=== PATIENT | female | born 2005 | race Caucasian/White ===

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

== ENCOUNTER 2023-01-19 15:42 | Emergency (ER) | payer OTHER ==
[2023-01-19 15:59] VITALS: TEMP 98.1; O2SAT 100
[2023-01-19] MEDS ORDERED: Sodium Chloride 0.9% 1000 ML 1,000 ML IV STA (16:17)
[2023-01-19] MEDS ORDERED: Sodium Chloride 0.9% 1000 ML 1,000 ML ONE (16:33)
[2023-01-19 16:41] LABS: HCG URINE TEST NEGATIVE (NEGATIVE)
[2023-01-19 16:45] LABS: Appearance Clear (Clear); Bacteria None Seen /HPF (None Seen); Bilirubin Negative (Negative); Blood Negative (Negative); Epithelial Cells Rare /HPF (None Seen); Glucose, Urine Negative (Negative); Hyaline Casts NONE SEEN /LPF (0-2); Ketones Negative (Negative); Leukocyte Esterase Trace (Negative); Nitrite Negative (Negative); Ph 5.5 (4.6-8.0); Protein,Urine Dip Negative (Negative); RBC 0-2 /HPF (0-5); Specific Gravity <=1.005 (1.005-1.030); Urobilinogen 0.2 mg/dL (0.2); WBC 0-2 /HPF (0-5)
[2023-01-19 16:53] LABS: ADD URINE CULTURE? NO (NO)
[2023-01-19 16:54] LABS: Absolute Neutrophil Ct (ANC) 9.14 x10^3/uL (1.4-6.9); BASOPHIL % 0.3 % (0.0-0.4); Basophil (Absolute #) 0.04 x10^3/uL (0-0.4); Eosinophil % 0.4 % (0.00-5.0); Eosinophil (Absolute #) 0.05 x10^3/uL (0-0.5); Hematocrit 42.2 % (35-47); Hemoglobin 14.2 g/dL (12.0-16.0); IMMATURE GRAN # 0.04 x10^3u/L (0.00-0.03); IMMATURE GRAN % 0.3 % (0.00-0.4); Lymphocyte (Absolute #) 2.01 x10^3/uL (1.0-4.6); Lymphocytes % 16.9 % (24.0-44.0); Mean Cell Volume 89.8 fL (78-100); Mean Corpuscular Hemoglobin 30.2 pg (26-32); Mean Corpuscular Hgb Concent. 33.6 g/dL (32-36); Mean Platelet Volume 9.6 fL (7.5-11.0); Monocyte (Absolute #) 0.63 x10^3/uL (0.0-1.3); Monocytes % 5.3 % (0.0-12.0); Neutrophil % 76.8 % (36.0-66.0); Platelet Count 267 x10^3/uL (150-450); Red Cell Distribution Width 11.4 % (11.5-14.0); White Blood Count 11.9 x10^3/uL (4.0-10.5)
[2023-01-19 17:07] LABS: ALBUMIN 4.7 g/dL (3.5-5.0); ALKALINE PHOSPHATASE 87 U/L (38-126); AMYLASE 86 U/L (30-110); ANION GAP 13.1 MEQ/L (5-15); BLOOD UREA NITROGEN 6 mg/dL (7-17); CHLORIDE 109 mmol/L (98-107); Calcium 9.6 mg/dL (8.4-10.2); Carbon Dioxide 21 mmol/L (22-30); Creatinine 1 0.57 mg/dL (0.52-1.04); EST GLOMERULAR FILTRATION RATE > 60.0 ML/MIN; Glucose 96 mg/dL (74-106); LIPASE 97 U/L (23-300); Potassium 3.9 mmol/L (3.5-5.1); SGOT/AST 33 U/L (14-36); SGPT/ALT 16 U/L (0-35); SODIUM 139 mmol/L (137-145); Total Protein 7.7 g/dL (6.3-8.2)
[2023-01-19 17:09] LABS: Amphetamine,Urine NEGATIVE (NEGATIVE); Barbiturate,Urine NEGATIVE (NEGATIVE); Benzodiazepine,Urine NEGATIVE (NEGATIVE); Cocaine,Urine NEGATIVE (NEGATIVE); Methadone,Urine NEGATIVE (NEGATIVE); Opiate,Urine NEGATIVE (NEGATIVE); PCP,Urine NEGATIVE (NEGATIVE); THC,Urine NEGATIVE (NEGATIVE)
--- NOTE | 2023-01-19 17:36 | ERPHSYRPT ---
- History of Present Illness Time Seen by Provider: 01/19/23 16:05 Historian: patient Exam Limitations: no limitations Patient Subjective Stated Complaint: PT HERE FOR SUDDEN ONSET OF EPIGASTRIC PAIN THAT RADIATES DOWN ABD 45 MINS AGO, NO FEVER, PT HAS HX OF ABD PAIN AND C ONSTIPATION. SHE STATES SHE HAS NOT HAD A BM FOR OVER A WEEK NOW Triage Nursing Assessment: PT ALERT, WALKED IN. RESP EASY, SKIN W/D/P. ABD SOFT, TENDER TO EPIGATRIC AREA. MOVES ALL EXT WELL, NO EDEMA NOTED Physician History: Patient is a 17-year-old white female who presents with abdominal pain which started approximately an hour prior to arrival. The pain seems to start in the epigastric area and radiates down into the suprapubic area. This patient suffers from chronic constipation and says she has not had a bowel movement in a week. She has no fever chills or sweats she rates the taint pain 10 of 10 but is certainly not displaying any sign of distress. She was seen by gastrology in May of this year and had a pelvic ultrasound which did show some ovarian cysts. Timing/Duration: today Activities at Onset: none Quality: cramping Abdominal Pain Onset Location: epigastric Pain Radiation: periumbilical Severity of Pain-Max: severe Severity of Pain-Current: severe Previous symptoms: same symptoms as today Allergies/Adverse Reactions: No Known Drug Allergies Allergy (Verified 01/19/23 16:01) Home Medications: Escitalopram Oxalate [Lexapro] 10 mg PO DAILY 01/19/23 [History] Hx Tetanus, Diphtheria Vaccination/Date Given: Yes Hx Influenza Vaccination/Date Given: No Hx Pneumococcal Vaccination/Date Given: No Immunizations Up to Date: Yes Travel Risk - International Travel Have you traveled outside of the country in past 3 weeks: No - Coronavirus Screening Are you exhibiting any of the following symptoms?: No Close contact with a COVID-19 positive Pt in past 14-21 Days: No - Vaccine Status Have you recieved a Covid-19 vaccination: Yes 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[employer] - Vaccination Dates Date of 2cond Vaccination (if applicable): 2020 - Review of Systems Constitutional: No Fever, No Chills Eyes: No Symptoms Ears, Nose, & Throat: No Symptoms Respiratory: No Cough, No Dyspnea Cardiac: No Chest Pain, No Edema, No Syncope Abdominal/Gastrointestinal: Abdominal Pain, No Nausea, No Vomiting, No Diarrhea Genitourinary Symptoms: No Dysuria Musculoskeletal: No Back Pain, No Neck Pain Skin: No Rash Neurological: No Dizziness, No Focal Weakness, No Sensory Changes Psychological: No Symptoms Endocrine: No Symptoms All Other Systems: Reviewed and Negative - Past Medical History Pertinent Past Medical History: No - Past Surgical History Past Surgical History: No Neuro Surgical History: Other Other Surgical History: TUBES IN EARS - Social History Smoking Status: Never smoker Exposure to second hand smoke: No Drug Use: none Patient Lives Alone: No - Female History Hx Last Menstrual Period: WEEK AGO Hx Now: No - Nursing Vital Signs Nursing Vital Signs: Initial Vital Signs Temperature 98.1 F 01/19/23 15:58 Pulse Rate 77 01/19/23 15:58 Respiratory Rate 18 01/19/23 15:58 Blood Pressure 139/90 01/19/23 15:58 O2 Sat by Pulse Oximetry 100 01/19/23 15:58 Pain Scale Pain Intensity 10 - Physical Exam General Appearance: no apparent distress, alert Eye Exam: PERRL/EOMI, eyes nml inspection Ears, Nose, Throat Exam: normal ENT inspection, pharynx normal, moist mucous membranes Neck Exam: normal inspection, non-tender, supple, full range of motion Respiratory Exam: normal breath sounds, lungs clear, No respiratory distress Cardiovascular Exam: regular rate/rhythm, normal heart sounds Gastrointestinal/Abdomen Exam: tenderness, No distention, No mass, No guarding, No rebound Back Exam: normal inspection, normal range of motion, No CVA tenderness, No vertebral tenderness Extremity Exam: normal inspection, normal range of motion, pelvis stable Neurologic Exam: alert, oriented x 3, cooperative, normal mood/affect, nml cerebellar function, sensation nml, No motor deficits Skin Exam: normal color, warm, dry SpO2 Interpretation: normal SpO2: 100 O2 Delivery: Room Air - Course Nursing assessment & vital signs reviewed: Yes - CT Exams Abdomen/Pelvis CT Interpretation: Tele-radiologist Report Ordered Tests: Active Orders 24 hr Category Date Time Status IV Insertion STAT Care 01/19/23 16:17 Active ABDOMEN AND PELVIS W CONTRAST [CT] Stat Exams 01/19/23 16:17 Completed AMYLASE Stat Lab 01/19/23 16:40 Completed CBC W DIFF Stat Lab 01/19/23 16:40 Completed CMP Stat Lab 01/19/23 16:40 Completed HCG QUALITATIVE, URINE Stat Lab 01/19/23 16:21 Completed LIPASE Stat Lab 01/19/23 16:40 Completed Lactic Acid Stat Lab 01/19/23 16:55 Completed UA W/RFX UR CULTURE Stat Lab 01/19/23 16:21 Completed Urine Triage Profile Stat Lab 01/19/23 16:21 Completed Medication Summary Discontinued Medications Generic Name Dose Route Start Last Admin Trade Name Linus PRN Reason Stop Dose Admin Sodium Chloride 1,000 mls @ 999 mls/hr 01/19/23 16:17 01/19/23 16:35 Sodium Chloride 0.9% 1000 Ml IV 01/19/23 17:17 999 mls/hr .Q1H1M STA Administration Sodium Chloride Confirm 01/19/23 16:33 Sodium Chloride 0.9% 1000 Ml Administered 01/19/23 16:34 Dose 1,000 mls @ ud .ROUTE .STK-MED ONE Lab/Rad Data: Laboratory Result Diagrams 01/19/23 16:40 01/19/23 16:40 Laboratory Results 01/19/23 01/19/23 01/19/23 Range/Units 16:55 16:40 16:40 WBC 11.9 H (4.0-10.5) x10^3/uL RBC 4.70 (4.1-5.4) x10^6/uL Hgb 14.2 (12.0-16.0) g/dL Hct 42.2 (35-47) % MCV 89.8 (78-100) fL MCH 30.2 (26-32) pg MCHC 33.6 (32-36) g/dL RDW 11.4 L (11.5-14.0) % Plt Count 267 (150-450) x10^3/uL MPV 9.6 (7.5-11.0) fL Gran % 76.8 H (36.0-66.0) % Immature Gran % (Auto) 0.3 (0.00-0.4) % Nucleat RBC Rel Count 0.0 (0.00-0.1) % Eos # (Auto) 0.05 (0-0.5) x10^3/uL Immature Gran # (Auto) 0.04 H (0.00-0.03) x10^3u/L Absolute Lymphs (auto) 2.01 (1.0-4.6) x10^3/uL Absolute Monos (auto) 0.63 (0.0-1.3) x10^3/uL Absolute Nucleated RBC 0.00 (0.00-0.01) x10^3u/L Lymphocytes % 16.9 L (24.0-44.0) % Monocytes % 5.3 (0.0-12.0) % Eosinophils % 0.4 (0.00-5.0) % Basophils % 0.3 (0.0-0.4) % Absolute Granulocytes 9.14 H (1.4-6.9) x10^3/uL Basophils # 0.04 (0-0.4) x10^3/uL Sodium 139 (137-145) mmol/L Potassium 3.9 (3.5-5.1) mmol/L Chloride 109 H (98-107) mmol/L Carbon Dioxide 21 L (22-30) mmol/L Anion Gap 13.1 (5-15) MEQ/L BUN 6 L (7-17) mg/dL Creatinine 0.57 (0.52-1.04) mg/dL Estimated GFR > 60.0 ML/MIN Glucose 96 (74-106) mg/dL Lactic Acid 1.1 (0.4-2.0) Calcium 9.6 (8.4-10.2) mg/dL Total Bilirubin 0.50 (0.2-1.3) mg/dL AST 33 (14-36) U/L ALT 16 (0-35) U/L Alkaline Phosphatase 87 (38-126) U/L Serum Total Protein 7.7 (6.3-8.2) g/dL Albumin 4.7 (3.5-5.0) g/dL Amylase 86 (30-110) U/L Lipase 97 (23-300) U/L Urine Color (Yellow) Urine Appearance (Clear) Urine pH (4.6-8.0) Ur Specific [place] (1.005-1.030) Urine Protein (Negative) Urine Glucose (UA) (Negative) mg/dL Urine Ketones (Negative) Urine Blood (Negative) Urine Nitrite (Negative) Urine Bilirubin (Negative) Urine Urobilinogen (0.2) mg/dL Ur Leukocyte Esterase (Negative) U Hyaline Cast (Auto) (0-2) /LPF Urine Microscopic RBC (0-5) /HPF Urine Microscopic WBC (0-5) /HPF Ur Epithelial Cells (None Seen) /HPF Urine Bacteria (None Seen) /HPF Urine Culture Reflexed (NO) Urine HCG, Qual (NEGATIVE) Urine Opiates Level (NEGATIVE) Ur Methadone (NEGATIVE) Urine Barbiturates (NEGATIVE) Ur Phencyclidine (PCP) (NEGATIVE) Urine Amphetamine (NEGATIVE) U Benzodiazepine Level (NEGATIVE) Urine Cocaine (NEGATIVE) Urine Marijuana (THC) (NEGATIVE) 01/19/23 01/19/23 01/19/23 Range/Units 16:21 16:21 16:21 WBC (4.0-10.5) x10^3/uL RBC (4.1-5.4) x10^6/uL Hgb (12.0-16.0) g/dL Hct (35-47) % MCV (78-100) fL MCH (26-32) pg MCHC (32-36) g/dL RDW (11.5-14.0) % Plt Count (150-450) x10^3/uL MPV (7.5-11.0) fL Gran % (36.0-66.0) % Immature Gran % (Auto) (0.00-0.4) % Nucleat RBC Rel Count (0.00-0.1) % Eos # (Auto) (0-0.5) x10^3/uL Immature Gran # (Auto) (0.00-0.03) x10^3u/L Absolute Lymphs (auto) (1.0-4.6) x10^3/uL Absolute Monos (auto) (0.0-1.3) x10^3/uL Absolute Nucleated RBC (0.00-0.01) x10^3u/L Lymphocytes % (24.0-44.0) % Monocytes % (0.0-12.0) % Eosinophils % (0.00-5.0) % Basophils % (0.0-0.4) % Absolute Granulocytes (1.4-6.9) x10^3/uL Basophils # (0-0.4) x10^3/uL Sodium (137-145) mmol/L Potassium (3.5-5.1) mmol/L Chloride (98-107) mmol/L Carbon Dioxide (22-30) mmol/L Anion Gap (5-15) MEQ/L BUN (7-17) mg/dL Creatinine (0.52-1.04) mg/dL Estimated GFR ML/MIN Glucose (74-106) mg/dL Lactic Acid (0.4-2.0) Calcium (8.4-10.2) mg/dL Total Bilirubin (0.2-1.3) mg/dL AST (14-36) U/L ALT (0-35) U/L Alkaline Phosphatase (38-126) U/L Serum Total Protein (6.3-8.2) g/dL Albumin (3.5-5.0) g/dL Amylase (30-110) U/L Lipase (23-300) U/L Urine Color Yellow (Yellow) Urine Appearance Clear (Clear) Urine pH 5.5 (4.6-8.0) Ur Specific [place] <=1.005 (1.005-1.030) Urine Protein Negative (Negative) Urine Glucose (UA) Negative (Negative) mg/dL Urine Ketones Negative (Negative) Urine Blood Negative (Negative) Urine Nitrite Negative (Negative) Urine Bilirubin Negative (Negative) Urine Urobilinogen 0.2 (0.2) mg/dL Ur Leukocyte Esterase Trace A (Negative) U Hyaline Cast (Auto) NONE SEEN (0-2) /LPF Urine Microscopic RBC 0-2 (0-5) /HPF Urine Microscopic WBC 0-2 (0-5) /HPF Ur Epithelial Cells Rare (None Seen) /HPF Urine Bacteria None Seen (None Seen) /HPF Urine Culture Reflexed NO (NO) Urine HCG, Qual NEGATIVE (NEGATIVE) Urine Opiates Level NEGATIVE (NEGATIVE) Ur Methadone NEGATIVE (NEGATIVE) Urine Barbiturates NEGATIVE (NEGATIVE) Ur Phencyclidine (PCP) NEGATIVE (NEGATIVE) Urine Amphetamine NEGATIVE (NEGATIVE) U Benzodiazepine Level NEGATIVE (NEGATIVE) Urine Cocaine NEGATIVE (NEGATIVE) Urine Marijuana (THC) NEGATIVE (NEGATIVE) - Progress Progress: unchanged Medical Desision Making - Independent Historian Additional History obtained from: Mother - Diagnostic Testing Diagnostic test were ordered, analyzed, and reviewed by me: Yes Radiological Interpretation: Reviewed by me - Risk of complications Low Risk: Low risk of morbidity from additional dx testing or treatment - Departure Departure Disposition: Home Clinical Impression: Abdominal pain Condition: Stable Critical Care Time: No Referrals: SOLIS ROD, AB [Primary Care Provider] - Follow up/PCP as directed Instructions: Severe Abdominal Pain, Adult (DC) Prescriptions: Dicyclomine HCl 20 mg [Bentyl 20 mg] 20 mg PO Q6H 10 Days #40 tablet
[2023-01-19 18:14] VITALS: BP 114/64; PULSE 71; RESP 21
--- NOTE | 2023-01-19 18:31 | XRAY ---
CLINICAL HISTORY:pain COMPARISON:None. TECHNIQUE:A CT scan of the abdomen and pelvis was performed with IV contrast. Coronal and sagittal reconstructive images were also obtained. FINDINGS: There is no evidence of hyperdense calculus in the region of kidneys, ureters, or bladder. The liver is of average size. The parenchyma is homogenous. No focal lesions. The intrahepatic biliary radicals and the bile ducts are normal. The kidneys are unremarkable showing normal site, size, and smooth outline with preserved parenchymal thickness. The spleen, pancreas, and adrenal glands are unremarkable. The caecum is relatively low in position and seen attaining rather midline location. The appendix is distinct and shows no inflammatory changes. The gallbladder is distended and shows no definite dense stones. There is no evidence of wall thickening/ pericholecystic collection. The ascending colon, the transverse colon, the descending colon, visualized small bowel loops are unremarkable. There is no evidence of significant enlargement of the mesenteric or retroperitoneal lymph nodes. The rectosigmoid colon is unremarkable. The uterus is anteverted showing mild distension of its cavity by homogenous hypo density. The endometrium measures about 1.7 cm. The left ovarian hypodense physiological cyst measures 1.6cm. No sizable adnexal masses. No evidence of pelvic lymphadenopathy. A scan through the lower chest reveals an unremarkable lung basis and heart. IMPRESSION: No urinary tract or gall bladder stones. No appendicular inflammatory changes. No sizable adnexal lesions. Apart from relative low position of the caecum. Mild distension of the uterine cavity by hypodense content. Ultrasound correlation is suggested if clinically warranted. Electronically Signed by: Jamee Da Silva MD. (01/19/2023 17:31:00 MIXER CRANE OPERATOR)
== END 2023-01-19 18:53 | disposition home or self-care (01) ==
LOC: ED 15:42
DX: R10.13 Epigastric pain (principal); R10.33 Periumbilical pain; Z79.899 Other long term (current) drug therapy
CPT/HCPCS: 36000; 36415; 74177; 80053; 80307; 81001; 81025; 82150; 83605; 83690; 85025; 96360; 99284

== ENCOUNTER 2023-08-09 15:06 | Emergency (ER) | payer OTHER ==
--- NOTE | 2023-08-09 15:16 | ERPHSYRPT ---
- History of Present Illness Time Seen by Provider: 08/09/23 15:16 Historian: patient Exam Limitations: no limitations Physician History: This is a 17-year-old white female patient of nurse practitioner Carin who presents with suprapubic abdominal pain that she describes as achiness the level of 6 out of 10 and associated nausea vomiting intermittently for 3 days. She has urinary hesitancy and urgency. She denies shortness of breath. She denies chest pain. Patient has a history of depression. Timing/Duration: day(s) Quality: aching Abdominal Pain Onset Location: suprapubic Pain Radiation: no radiation Severity of Pain-Max: moderate Severity of Pain-Current: moderate Modifying Factors: Improves With: nothing Associated Symptoms: nausea, vomiting Previous symptoms: same symptoms as today, no recent treatment Allergies/Adverse Reactions: No Known Drug Allergies Allergy (Verified 08/09/23 15:26) Home Medications: Escitalopram Oxalate [Lexapro] 10 mg PO DAILY 01/19/23 [History] Hx Tetanus, Diphtheria Vaccination/Date Given: Yes Hx Influenza Vaccination/Date Given: No Hx Pneumococcal Vaccination/Date Given: No Travel Risk - International Travel Have you traveled outside of the country in past 3 weeks: No - Emerging Infectious Disease Are you exhibiting symptoms associated with any current EIDs: No - Review of Systems Constitutional: No Symptoms Eyes: No Symptoms Ears, Nose, & Throat: No Symptoms, Throat Swelling Respiratory: No Symptoms Cardiac: No Symptoms Abdominal/Gastrointestinal: Abdominal Pain Genitourinary Symptoms: Hesitancy, Urgency (Suprapubic), No Vaginal Bleeding, No Vaginal Discharge Musculoskeletal: No Symptoms Skin: No Symptoms Neurological: No Symptoms Psychological: No Symptoms Endocrine: No Symptoms Hematologic/Lymphatic: No Symptoms Immunological/Allergic: No Symptoms All Other Systems: Reviewed and Negative - Past Medical History Pertinent Past Medical History: No - Past Surgical History Past Surgical History: No Neuro Surgical History: Other Other Surgical History: TUBES IN EARS - Social History Smoking Status: Never smoker Exposure to second hand smoke: No Drug Use: none Patient Lives Alone: No - Nursing Vital Signs Nursing Vital Signs: Initial Vital Signs Temperature 97.5 F 08/09/23 15:28 Pulse Rate 70 08/09/23 15:28 Respiratory Rate 18 08/09/23 15:28 Blood Pressure 134/77 08/09/23 15:28 O2 Sat by Pulse Oximetry 100 08/09/23 15:28 Pain Scale Pain Intensity 6 - Physical Exam General Appearance: no apparent distress, alert, anxiety Eye Exam: PERRL/EOMI, eyes nml inspection Ears, Nose, Throat Exam: normal ENT inspection, moist mucous membranes Neck Exam: normal inspection, non-tender, supple, full range of motion Respiratory Exam: normal breath sounds, lungs clear, airway intact, No chest tenderness, No respiratory distress Cardiovascular Exam: regular rate/rhythm, normal heart sounds, normal peripheral pulses Gastrointestinal/Abdomen Exam: soft, normal bowel sounds, tenderness, No guarding, No rebound Pelvic Exam: not done Rectal Exam: not done Back Exam: normal inspection, normal range of motion, No CVA tenderness, No vertebral tenderness Extremity Exam: normal inspection, normal range of motion, pelvis stable Neurologic Exam: alert, oriented x 3, cooperative, 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 nml as tested, normal mood/affect, nml cerebellar function, nml station & gait, sensation nml Skin Exam: normal color, warm, dry Lymphatic Exam: No adenopathy SpO2 Interpretation: normal O2 Delivery: Room Air - Course Nursing assessment & vital signs reviewed: Yes Ordered Tests: Active Orders 24 hr Category Date Time Status IV Insertion STAT Care 08/09/23 17:24 Active ABDOMEN AND PELVIS W/0 CONTRAS [CT] Stat Exams 08/09/23 17:24 Taken AMYLASE Stat Lab 08/09/23 17:50 Completed CBC W DIFF Stat Lab 08/09/23 17:50 Completed CMP Stat Lab 08/09/23 17:50 Completed HCG QUALITATIVE, URINE Stat Lab 08/09/23 16:04 Completed LIPASE Stat Lab 08/09/23 17:50 Completed Lactic Acid Stat Lab 08/09/23 17:45 Completed UA W/RFX UR CULTURE Stat Lab 08/09/23 16:04 Completed Medication Summary Discontinued Medications Generic Name Dose Route Start Last Admin Trade Name Freq PRN Reason Stop Dose Admin Ceftriaxone Sodium 1 gm in 100 mls @ 200 mls/hr 08/09/23 17:25 08/09/23 17:42 Rocephin 1 Gm / 100 Ml Nacl IV 08/09/23 17:54 200 mls/hr STAT ONE 200 mls/hr Administration Sodium Chloride 1,000 mls @ 999 mls/hr 08/09/23 17:24 08/09/23 17:41 Sodium Chloride 0.9% 1000 Ml IV 08/09/23 18:24 999 mls/hr .Q1H1M STA Administration Sodium Chloride Confirm 08/09/23 17:29 Sodium Chloride 0.9% 1000 Ml Administered 08/09/23 17:30 Dose 1,000 mls @ ud .ROUTE .STK-MED ONE Ceftriaxone Sodium Confirm 08/09/23 17:29 Rocephin 1 Gm / 100 Ml Nacl Administered 08/09/23 17:30 Dose 1 gm in 100 mls @ ud IV .STK-MED ONE Ondansetron HCl 4 mg 08/09/23 17:24 08/09/23 17:41 Ondansetron Hcl 4 Mg/2 Ml Vial IV 08/09/23 17:25 4 mg STAT ONE Administration Ondansetron HCl Confirm 08/09/23 17:29 Ondansetron Hcl 4 Mg/2 Ml Vial Administered 08/09/23 17:30 Dose 4 mg .ROUTE .STK-MED ONE Pantoprazole Sodium 40 mg 08/09/23 17:24 08/09/23 17:41 Pantoprazole 40 Mg Vial IV 08/09/23 17:25 40 mg STAT ONE Administration Pantoprazole Sodium Confirm 08/09/23 17:29 Pantoprazole 40 Mg Vial Administered 08/09/23 17:30 Dose 40 mg IV .STK-MED ONE Lab/Rad Data: Laboratory Result Diagrams 08/09/23 17:50 08/09/23 17:50 Laboratory Results 08/09/23 08/09/23 08/09/23 Range/Units 17:50 17:50 17:45 WBC 7.6 (4.0-10.5) x10^3/uL RBC 4.77 (4.1-5.4) x10^6/uL Hgb 14.1 (12.0-16.0) g/dL Hct 42.4 (35-47) % MCV 88.9 (78-100) fL MCH 29.6 (26-32) pg MCHC 33.3 (32-36) g/dL RDW 11.3 L (11.5-14.0) % Plt Count 246 (150-450) x10^3/uL MPV 9.7 (7.5-11.0) fL Gran % 54.3 (36.0-66.0) % Immature Gran % (Auto) 0.3 (0.00-0.4) % Nucleat RBC Rel Count 0.0 (0.00-0.1) % Eos # (Auto) 0.15 (0-0.5) x10^3/uL Immature Gran # (Auto) 0.02 (0.00-0.03) x10^3u/L Absolute Lymphs (auto) 2.31 (1.0-4.6) x10^3/uL Absolute Monos (auto) 0.96 (0.0-1.3) x10^3/uL Absolute Nucleated RBC 0.00 (0.00-0.01) x10^3u/L Lymphocytes % 30.6 (24.0-44.0) % Monocytes % 12.7 H (0.0-12.0) % Eosinophils % 2.0 (0.00-5.0) % Basophils % 0.1 (0.0-0.4) % Absolute Granulocytes 4.10 (1.4-6.9) x10^3/uL Basophils # 0.01 (0-0.4) x10^3/uL Sodium 140 (135-145) mmol/L Potassium 4.1 (3.5-5.1) mmol/L Chloride 108 H (98-107) mmol/L Carbon Dioxide 23 (22-30) mmol/L Anion Gap 12.4 (5-15) MEQ/L BUN 8 (7-17) mg/dL Creatinine 0.73 (0.52-1.04) mg/dL Estimated GFR 121.4 ML/MIN Glucose 86 (74-106) mg/dL Lactic Acid 0.6 (0.4-2.0) Calcium 9.3 (8.4-10.2) mg/dL Total Bilirubin 0.50 (0.2-1.3) mg/dL AST 21 (14-36) U/L ALT 12 (0-35) U/L Alkaline Phosphatase 49 (38-126) U/L Serum Total Protein 7.0 (6.3-8.2) g/dL Albumin 4.3 (3.5-5.0) g/dL Amylase 61 (30-110) U/L Lipase 67 (23-300) U/L Urine Color (Yellow) Urine Appearance (Clear) Urine pH (4.6-8.0) Ur Specific [place] (1.005-1.030) Urine Protein (Negative) Urine Glucose (UA) (Negative) mg/dL Urine Ketones (Negative) Urine Blood (Negative) Urine Nitrite (Negative) Urine Bilirubin (Negative) Urine Urobilinogen (0.2) mg/dL Ur Leukocyte Esterase (Negative) U Hyaline Cast (Auto) (0-2) /LPF Urine Microscopic RBC (0-5) /HPF Urine Microscopic WBC (0-5) /HPF Ur Epithelial Cells (None Seen) /HPF Urine Bacteria (None Seen) /HPF Urine Culture Reflexed (NO) Urine HCG, Qual (NEGATIVE) 08/09/23 08/09/23 Range/Units 16:04 16:04 WBC (4.0-10.5) x10^3/uL RBC (4.1-5.4) x10^6/uL Hgb (12.0-16.0) g/dL Hct (35-47) % MCV (78-100) fL MCH (26-32) pg MCHC (32-36) g/dL RDW (11.5-14.0) % Plt Count (150-450) x10^3/uL MPV (7.5-11.0) fL Gran % (36.0-66.0) % Immature Gran % (Auto) (0.00-0.4) % Nucleat RBC Rel Count (0.00-0.1) % Eos # (Auto) (0-0.5) x10^3/uL Immature Gran # (Auto) (0.00-0.03) x10^3u/L Absolute Lymphs (auto) (1.0-4.6) x10^3/uL Absolute Monos (auto) (0.0-1.3) x10^3/uL Absolute Nucleated RBC (0.00-0.01) x10^3u/L Lymphocytes % (24.0-44.0) % Monocytes % (0.0-12.0) % Eosinophils % (0.00-5.0) % Basophils % (0.0-0.4) % Absolute Granulocytes (1.4-6.9) x10^3/uL Basophils # (0-0.4) x10^3/uL Sodium (135-145) mmol/L Potassium (3.5-5.1) mmol/L Chloride (98-107) mmol/L Carbon Dioxide (22-30) mmol/L Anion Gap (5-15) MEQ/L BUN (7-17) mg/dL Creatinine (0.52-1.04) mg/dL Estimated GFR ML/MIN Glucose (74-106) mg/dL Lactic Acid (0.4-2.0) Calcium (8.4-10.2) mg/dL Total Bilirubin (0.2-1.3) mg/dL AST (14-36) U/L ALT (0-35) U/L Alkaline Phosphatase (38-126) U/L Serum Total Protein (6.3-8.2) g/dL Albumin (3.5-5.0) g/dL Amylase (30-110) U/L Lipase (23-300) U/L Urine Color Yellow (Yellow) Urine Appearance Clear (Clear) Urine pH 5.5 (4.6-8.0) Ur Specific [place] 1.025 (1.005-1.030) Urine Protein Negative (Negative) Urine Glucose (UA) Negative (Negative) mg/dL Urine Ketones 40 A (Negative) Urine Blood Negative (Negative) Urine Nitrite Negative (Negative) Urine Bilirubin Negative (Negative) Urine Urobilinogen 1.0 A (0.2) mg/dL Ur Leukocyte Esterase Small A (Negative) U Hyaline Cast (Auto) NONE SEEN (0-2) /LPF Urine Microscopic RBC 0-2 (0-5) /HPF Urine Microscopic WBC 6-10 A (0-5) /HPF Ur Epithelial Cells Rare (None Seen) /HPF Urine Bacteria None Seen (None Seen) /HPF Urine Culture Reflexed NO (NO) Urine HCG, Qual NEGATIVE (NEGATIVE) - Progress Progress: improved, pain not gone completely, re-examined Progress Note: 08/09/23 16:22 My medical decision making and the assignment of low complexity to this edgard ent's medical issue is based on review of the patient's past medical history, review of the patient's medication list, review the patient drug allergy list, history present illness and physical findings on examination. The workup in this patient will begin with a urinalysis and urine test. The urine looks very cloudy. This is likely the source of her symptoms. However, if the urinalysis is not consistent with her symptomatology and is negative for urinary tract infection, we may then need to place an intravenous line and obtain blood work and perform a CAT scan of the abdomen pelvis. Patient agrees with this plan. 08/09/23 18:33 I interpreted the laboratory data results that returned, that his urinalysis and the urine test. There is evidence of UTI and dehydration present. I did offer the patient a choice of treating this patient with IM antibiotics and Zofran ODT or performing a more extensive workup. She has chosen a more extensive workup. Differential diagnosis includes urinary tract infection, ureterolithiasis, bowel obstruction, colitis, appendicitis, ovarian abnormality. I will be transferring care of this patient to Dr. Oreilly at shift change. He will follow-up on the results of the workup and make final disposition. Counseled pt/family regarding: lab results, diagnosis, need for follow-up - Departure Departure Disposition: Home Clinical Impression: Abdominal pain, UTI (urinary tract infection), Dehydration Condition: Stable Critical Care Time: No Referrals: SOLIS ROD NP [Primary Care Provider] - Follow up/PCP as directed
[2023-08-09 15:37] VITALS: TEMP 97.5; O2SAT 100
[2023-08-09 16:49] LABS: HCG URINE TEST NEGATIVE (NEGATIVE)
[2023-08-09 16:54] LABS: Appearance Clear (Clear); Bacteria None Seen /HPF (None Seen); Bilirubin Negative (Negative); Blood Negative (Negative); Epithelial Cells Rare /HPF (None Seen); Glucose, Urine Negative (Negative); Hyaline Casts NONE SEEN /LPF (0-2); Ketones 40 (Negative); Leukocyte Esterase Small (Negative); Nitrite Negative (Negative); Ph 5.5 (4.6-8.0); Protein,Urine Dip Negative (Negative); RBC 0-2 /HPF (0-5); Specific Gravity 1.025 (1.005-1.030)
[2023-08-09 16:56] LABS: ADD URINE CULTURE? NO (NO)
[2023-08-09] MEDS ORDERED: PROTONIX 40 MG IV IV ONE (17:29)
[2023-08-09] MEDS ORDERED: Sodium Chloride 0.9% 1000 ML 1,000 ML ONE (17:29)
[2023-08-09] MEDS ORDERED: ROCEPHIN 1 GM / 100 ML NaCl 1 GM/100 ML IVPB IV ONE (17:29)
[2023-08-09] MEDS ORDERED: Zofran 4 MG/2 ML VIAL ONE (17:29)
[2023-08-09] MEDS: PROTONIX 40 MG IV IV ONE (17:41)
[2023-08-09] MEDS: Zofran 4 MG/2 ML VIAL IV ONE (17:41)
[2023-08-09] MEDS: Sodium Chloride 0.9% 1000 ML 1,000 ML IV STA (17:41)
[2023-08-09] MEDS: ROCEPHIN 1 GM / 100 ML NaCl 1 GM/100 ML IVPB IV ONE (17:42)
[2023-08-09 18:02] LABS: BASOPHIL % 0.1 % (0.0-0.4); Basophil (Absolute #) 0.01 x10^3/uL (0-0.4); Eosinophil (Absolute #) 0.15 x10^3/uL (0-0.5); Hematocrit 42.4 % (35-47); Hemoglobin 14.1 g/dL (12.0-16.0); IMMATURE GRAN # 0.02 x10^3u/L (0.00-0.03); IMMATURE GRAN % 0.3 % (0.00-0.4); Lymphocyte (Absolute #) 2.31 x10^3/uL (1.0-4.6); Lymphocytes % 30.6 % (24.0-44.0); Mean Cell Volume 88.9 fL (78-100); Mean Corpuscular Hemoglobin 29.6 pg (26-32); Mean Corpuscular Hgb Concent. 33.3 g/dL (32-36); Mean Platelet Volume 9.7 fL (7.5-11.0); Monocyte (Absolute #) 0.96 x10^3/uL (0.0-1.3); Monocytes % 12.7 % (0.0-12.0); Neutrophil % 54.3 % (36.0-66.0); Platelet Count 246 x10^3/uL (150-450); Red Blood Count 4.77 x10^6/uL (4.1-5.4); Red Cell Distribution Width 11.3 % (11.5-14.0); White Blood Count 7.6 x10^3/uL (4.0-10.5)
[2023-08-09 18:16] LABS: ALBUMIN 4.3 g/dL (3.5-5.0); ANION GAP 12.4 MEQ/L (5-15); BILIRUBIN,TOTAL 0.5 mg/dL (0.2-1.3); Calcium 9.3 mg/dL (8.4-10.2); Creatinine 1 0.73 mg/dL (0.52-1.04); EST GLOMERULAR FILTRATION RATE 121.4 ML/MIN; Potassium 4.1 mmol/L (3.5-5.1)
[2023-08-09 19:27] VITALS: BP 113/68; PULSE 69; RESP 16
--- NOTE | 2023-08-09 19:27 | XRAY ---
CLINICAL HISTORY: ABD pain; N/V COMPARISON: none TECHNIQUE: CT scan of the abdomen and pelvis without intravenous contrast administration. One of the following dose reduction techniques was utilized for this exam.Automated exposure control, adjustment of the mA and/or kV according to patient size, and use of iterative reconstruction. FINDINGS: The liver is of average size, regular contour and homogeneous texture with no focal lesion could be detected on non-contrast basis. No intra hepatic biliary radical dilatation. The spleen is of average size and shape with homogeneous parenchyma and no focal lesion could be noted on non-contrast basis. Both kidneys are of normal size, shape and parenchymal thickness with no stones, back pressure changes or space occupying lesions on non-contrast basis. The other retroperitoneal structures including the pancreas and adrenal glands are grossly within normal limits. Multiple small mesenteric lymph nodes are noted likely non-specific. No significant lymph lorne enlargement or ascetic fluid collection. The uterus, both adnexa and ischiorectal fossae show normal CT appearance. Normal filling of the urinary bladder with no stones, masses, or diverticula. Bone window settings showed no evidence of fractures or destructive lesions. Lung window settings showed normal appearance of both basal lung segments. No sign of acute appendicitis. IMPRESSION: Multiple small mesenteric lymph nodes are noted likely non-specific, otherwise normal non-contrast CT scan examination of the abdomen and pelvis. Electronically Signed by: Jamee Da Silva MD. (08/09/2023 19:22:37 EDT)
== END 2023-08-09 19:44 | disposition home or self-care (01) ==
LOC: ED 15:06
DX: N39.0 Urinary tract infection, site not specified (principal); R10.2 Pelvic and perineal pain; E86.0 Dehydration; R59.0 Localized enlarged lymph nodes; R11.2 Nausea with vomiting, unspecified; Z79.899 Other long term (current) drug therapy
CPT/HCPCS: 36415; 74176; 80053; 81001; 81025; 82150; 83605; 83690; 85025; 96360; 96374; 96375; 99284; J0696; J2405

== ENCOUNTER 2023-12-23 23:51 | Emergency (ER) | payer OTHER ==
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
[2023-12-24 00:27] LABS: Absolute Neutrophil Ct (ANC) 5.91 x10^3/uL (1.56-6.13); BASOPHIL % 0.3 % (0.1-1.2); Basophil (Absolute #) 0.03 x10^3/uL (0.01-0.08); Eosinophil % 0.6 % (0.7-5.8); Eosinophil (Absolute #) 0.05 x10^3/uL (0.04-0.36); Hematocrit 39.6 % (34.1-44.9); Hemoglobin 13.3 g/dL (11.2-15.7); IMMATURE GRAN # 0.03 x10^3u/L (0.001-0.031); IMMATURE GRAN % 0.3 % (0.001-0.429); Lymphocyte (Absolute #) 2.43 x10^3/uL (1.18-3.74); Lymphocytes % 26.9 % (19.3-51.7); Mean Cell Volume 87.8 fL (79.4-94.8); Mean Corpuscular Hemoglobin 29.5 pg (25.6-32.2); Mean Corpuscular Hgb Concent. 33.6 g/dL (32.2-35.5); Mean Platelet Volume 9.6 fL (9.4-12.3); Monocyte (Absolute #) 0.59 x10^3/uL (0.24-0.86); Monocytes % 6.5 % (4.7-12.5); Neutrophil % 65.4 % (34.0-71.1); Platelet Count 240 x10^3/uL (182-369); Red Blood Count 4.51 x10^6/uL (3.93-5.22); Red Cell Distribution Width 11.8 % (11.7-14.4)
[2023-12-24 00:33] VITALS: RESP 14; TEMP 98.3
[2023-12-24 00:42] LABS: ACETAMINOPHEN < 10 ug/ml (10-30); ALBUMIN 4.4 g/dL (3.5-5.0); ALKALINE PHOSPHATASE 68 U/L (38-126); ANION GAP 13.5 MEQ/L (5-15); BLOOD UREA NITROGEN 11 mg/dL (7-17); CHLORIDE 108 mmol/L (98-107); Calcium 9.5 mg/dL (8.4-10.2); Carbon Dioxide 20 mmol/L (22-30); Creatinine 1 0.69 mg/dL (0.52-1.04); EST GLOMERULAR FILTRATION RATE 127.3 ML/MIN; ETHYL ALCOHOL < 10 mg/dL (0-10); Glucose 104 mg/dL (74-106); Potassium 3.6 mmol/L (3.5-5.1); SALICYLATE < 1.0 mg/dL (2-20); SGOT/AST 38 U/L (14-36); SGPT/ALT 26 U/L (0-35); SODIUM 137 mmol/L (135-145)
[2023-12-24 00:51] LABS: Amphetamine,Urine NEGATIVE (NEGATIVE); Barbiturate,Urine NEGATIVE (NEGATIVE); Benzodiazepine,Urine NEGATIVE (NEGATIVE); Cocaine,Urine NEGATIVE (NEGATIVE); Methadone,Urine NEGATIVE (NEGATIVE); Opiate,Urine NEGATIVE (NEGATIVE); PCP,Urine NEGATIVE (NEGATIVE); THC,Urine NEGATIVE (NEGATIVE)
[2023-12-24 01:02] LABS: Appearance Clear (Clear); Bacteria Rare /HPF (None Seen); Bilirubin Negative (Negative); Blood Small (Negative); Epithelial Cells Few /HPF (None Seen); Glucose, Urine Negative (Negative); Hyaline Casts NONE SEEN /LPF (0-2); Ketones Trace (Negative); Leukocyte Esterase Negative (Negative); Nitrite Negative (Negative); Ph 5.5 (4.6-8.0); Protein,Urine Dip Negative (Negative); RBC 0-2 /HPF (0-5); Specific Gravity >=1.030 (1.005-1.030); Urobilinogen 0.2 mg/dL (0.2); WBC 0-2 /HPF (0-5)
[2023-12-24 01:05] LABS: INFLUENZA A NEGATIVE (NEGATIVE); INFLUENZA B NEGATIVE (NEGATIVE); RESPIRATORY SYNCTIAL VIRUS NEGATIVE (NEGATIVE); SARS-CoV-2 Xpert Express NEGATIVE (NEGATIVE)
[2023-12-24 04:01] VITALS: BP 114/61; PULSE 66; O2SAT 97
== END 2023-12-24 04:08 | disposition home or self-care (01) ==
LOC: ED 23:51
DX: F32.9 Major depressive disorder, single episode, unspecified (principal); Z79.899 Other long term (current) drug therapy
CPT/HCPCS: 0241U; 36415; 80053; 80143; 80179; 80307; 81001; 82077; 85025; 93005; 99284; Q3014

== ENCOUNTER 2024-02-12 17:26 | Emergency (ER) | payer OTHER ==
[2024-02-12 18:00] VITALS: RESP 18; TEMP 98.3
--- NOTE | 2024-02-12 18:43 | ERPHSYRPT ---
- History of Present Illness Historian: patient Exam Limitations: no limitations Patient Subjective Stated Complaint: Pt. states, "I have a hx of constipation since i was 5 years old, normally I can treat with laxatives at home, but I've tried everything from meds, increased water and excercise, nothing is working. Now I am in pain, nauseas and vomiting." Triage Nursing Assessment: Pt. presents to ER A&Ox3, skin p/w/d, resp even unlabored, able to move all four extremities. Hx Tetanus, Diphtheria Vaccination/Date Given: Yes Hx Influenza Vaccination/Date Given: No Hx Pneumococcal Vaccination/Date Given: No Immunizations Up to Date: No <PAULINE DAVIS - Last Filed: 02/12/24 18:40> <ROB COSME - Last Filed: 02/12/24 21:33> - History of Present Illness Time Seen by Provider: 02/12/24 17:41 Physician History: 18 years old female presented to the ER with complaints of constipation. Patient reports she does not have a normal bowel movement for the last 3 weeks. She has tried almost every [id number] laxative/stool softener with no relief. Patient reports gradually developing abdominal distention with some discomfort especially in the lower abdomen. Reports has urge to defecate but has hard stool which is not moving. Patient reports having vomiting once few days ago. No nausea at present. Does have history of chronic constipation. (PAULINE DAVIS) Allergies/Adverse Reactions: No Known Drug Allergies Allergy (Verified 12/24/23 00:03) Home Medications: Escitalopram Oxalate [Lexapro] 20 mg PO DAILY 01/19/23 [History] Travel Risk - International Travel Have you traveled outside of the country in past 3 weeks: No - Emerging Infectious Disease Are you exhibiting symptoms associated with any current EIDs: Yes Symptoms: Abdominal Pain <PAULINE DAVIS - Last Filed: 02/12/24 18:40> - Review of Systems Constitutional: No Symptoms Ears, Nose, & Throat: No Symptoms Respiratory: No Symptoms Cardiac: No Symptoms Abdominal/Gastrointestinal: Abdominal Pain, Nausea, Constipation Genitourinary Symptoms: No Symptoms Musculoskeletal: No Symptoms Skin: No Symptoms Neurological: No Symptoms Endocrine: No Symptoms Hematologic/Lymphatic: No Symptoms Immunological/Allergic: No Symptoms <PAULINE DAVIS - Last Filed: 02/12/24 18:40> - Past Medical History Pertinent Past Medical History: No Neurological History: No Pertinent History, Other ENT History: No Pertinent History Cardiac History: No Pertinent History Respiratory History: No Pertinent History Endocrine Medical History: No Pertinent History Musculoskeletal History: No Pertinent History GI Medical History: No Pertinent History History: No Pertinent History Psycho-Social History: No Pertinent History, Depression Female Reproductive Disorders: No Pertinent History Other Medical History: PMH: TICS (UNDIAGNOSED). PSH: TONSILLS AND ADNOIDS - Past Surgical History Past Surgical History: Yes Neuro Surgical History: No Pertinent History Cardiac: No Pertinent History Respiratory: No Pertinent History Genitourinary: No Pertinent History Musculoskeletal: No Pertinent History Female Surgical History: No Pertinent History Other Surgical History: TUBES IN EARS - Female History Hx Last Menstrual Period: 01/20/24 Hx Now: (unkn) - Social History Smoking Status: Never smoker Exposure to second hand smoke: No Drug Use: none Patient Lives Alone: No - Social Determinants of Health Will the patient participate in the screening: Yes Do you worry about a steady place to live?: No Do you have any problems with any of the following?: No known problems In the past 12 months,have you had to go without utilities?: No Transportation Issues: No Has anyone in your support network made you feel unsafe?: No Have you or anyone in your house had to go without enough: No <PAULINE DAVIS - Last Filed: 02/12/24 18:40> - Physical Exam General Appearance: no apparent distress, alert Eye Exam: PERRL/EOMI Ears, Nose, Throat Exam: normal ENT inspection Neck Exam: normal inspection, supple, full range of motion Respiratory Exam: normal breath sounds, lungs clear Cardiovascular Exam: regular rate/rhythm, normal heart sounds Gastrointestinal/Abdomen Exam: soft, normal bowel sounds, No tenderness, No guarding Back Exam: normal inspection Extremity Exam: normal inspection, normal range of motion Neurologic Exam: alert, oriented x 3, cooperative Skin Exam: normal color SpO2 Interpretation: normal SpO2: 98 O2 Delivery: Room Air <PAULINE DAVIS - Last Filed: 02/12/24 18:40> - Nursing Vital Signs Nursing Vital Signs: Initial Vital Signs Temperature 98.3 F 02/12/24 17:40 Pulse Rate 69 02/12/24 17:40 Respiratory Rate 18 02/12/24 17:40 Blood Pressure 136/76 02/12/24 17:40 O2 Sat by Pulse Oximetry 98 02/12/24 17:40 Pain Scale Pain Intensity 3 - Course Nursing assessment & vital signs reviewed: Yes - Radiology Exams Other X-ray Interpretation: Teleradiologist Report (KUB reveals mild fecal stasis) <ROB COSME - Last Filed: 02/12/24 21:33> Ordered Tests: Active Orders 24 hr Category Date Time Status KUB Stat Exams 02/12/24 17:56 Taken HCG QUALITATIVE, URINE Stat Lab 02/12/24 17:45 Completed Lab/Rad Data: Laboratory Results 02/12/24 Range/Units 17:45 Urine HCG, Qual NEGATIVE (NEGATIVE) <PAULINE DAVIS - Last Filed: 02/12/24 18:40> - Progress Progress: improved Counseled pt/family regarding: lab results, diagnosis, need for follow-up, rad results <ROB COSME - Last Filed: 02/12/24 21:33> - Progress Progress Note: 02/12/24 18:52 I will obtain KUB to make sure patient does not have any obstruction. Care is transferred to Dr. Cosme at end of my shift for reevaluation and final disposition. (PAULINE DAVIS) 18-year-old female endorsed Dr. Cosme at approximately [address] Cosme advised follow-up on pending KUB. KUB reviewed by Dr. Cosme and Dr. Carrasquillo. KUB reveals mild fecal stasis. Patient resting comfortably. Patient states she has tried [id number] laxatives with no success. Patient requesting an enema. Enema administered per RN. Patient now produce a bowel movement no indication for further workup will discharge home. Case discussed with patient's mother. She agreed to follow-up with patient's primary care doctor tomorrow for reevaluation. Mother reports patient has been experiencing intermittent bouts of constipation since she was 5 years old. She has not followed up with a GI specialist. Who advised in light of the ongoing recurrent problem patient should probably be evaluated by a design drafter. We advised a high-fiber diet. Patient and mother understand the recommendations and plan of care. They agree to follow-up as planned. They voiced no other complaints or concerns at this time. Portions of this note were created with voice recognition technology. There may be grammatical, spelling, punctuation or sound alike errors Complexity of problem addressed is moderate acute complicated no critical care time complex of data reviewed and analyzed is moderate. Test ordered chest reviewed results analyzed and correlated clinically with history and physical exam. Risk of complication and or risk of morbidity/mortality patient denise hill is low. Vital stable. Time spent to discharge patient approximately 15 minutes. Plan of care established for shared decision making. No social determinants of health present to impede follow-up. Portions of this note were created with voice recognition technology. There may be grammatical, spelling, punctuation or sound alike errors 02/12/24 21:30 (ROB COSME) <PAULINE DAVIS - Last Filed: 02/12/24 18:40> - Departure Departure Disposition: Home Critical Care Time: No <ROB COSME - Last Filed: 02/12/24 21:33> - Departure Clinical Impression: Constipation Condition: Stable Referrals: SOLIS ROD FLOOR RENOVATOR [Primary Care Provider] - Follow up/PCP as directed Additional Instructions: Discharge/Care Plan RALPH LY was seen on 02/12/24 in the Emergency Room. The patient was counseled regarding Diagnosis,Lab results, Imaging studies, need for follow up and when to return to the Emergency Room. Prescriptions given: Discharge Note I have spoken with the patient and/or caregivers. I have explained the patient's condition, diagnosis and treatment plan based on the information available to me at this time. I have answered the patient's and/or caregiver's questions and addressed any concerns. The patient and/or caregivers have as good understanding of the patient's diagnosis, condition and treatment plan as can be expected at this point. The vital signs have been stable. The patient's condition is stable and appropriate for discharge from the emergency department. The patient will pursue further outpatient evaluation with the primary care physician or other designated or consulting physician as outlined in the discharge instructions. The patient and/or caregivers are agreeable to this plan of care and follow-up instructions have been explained in detail. The patient and/or caregivers have received these instruction. The patient/and or caregivers are aware that any significant change in condition or worsening of symptoms should prompt an immediate return to this or the closest emergency department or call 911.
[2024-02-12 19:14] LABS: HCG URINE TEST NEGATIVE (NEGATIVE)
[2024-02-12 19:47] VITALS: BP 124/70; PULSE 68
[2024-02-12 21:07] VITALS: O2SAT 98
--- NOTE | 2024-02-13 08:33 | XRAY ---
Indication: Constipation. Obstruction. Comparison: None KUB nonacute and nonobstructed with minimal/mild scattered colonic fecal debris. Solid organs unremarkable. Osseous structures intact with minimal dextroscoliosis centered at T10.
== END 2024-02-12 21:39 | disposition home or self-care (01) ==
LOC: ED 17:26
DX: K59.00 Constipation, unspecified (principal)
CPT/HCPCS: 74018; 81025; 99283; 99284

== ENCOUNTER 2024-04-27 10:58 | Emergency (ER) | payer OTHER ==
--- NOTE | 2024-04-27 11:01 | ERPHSYRPT ---
- History of Present Illness Time Seen by Provider: 04/27/24 11:01 Source: patient, family Exam Limitations: no limitations Physician History: This is a 18-year-old white female patient who arrives by private vehicle accompanied by family secondary to concerns of allergic reaction, rash and swelling of her face and lips. Patient has no known new exposure. Patient has been on Lexapro for 3 years. Patient was seen at [facility] prior to arrival and was sent home. She had viral swabs performed which were negative. An hour prior to arrival, the patient took 50 mg of Benadryl orally. Patient states that she has had infrequent episodes of swelling in her lips but it never lasted this long and never expanded onto her face. Patient is not short of breath. She is not wheezing and has no throat tightness or difficulty swallowing. She denies chest pain Timing/Duration: abrupt onset Severity: mild ENT Location: facial Prearrival Treatment: over the counter meds (50 mg Benadryl orally 1 hour prior to arrival) Modifying Factors: Improves With: nothing Associated Symptoms: denies symptoms Allergies/Adverse Reactions: No Known Drug Allergies Allergy (Verified 04/27/24 11:48) Home Medications: Escitalopram Oxalate [Lexapro] 20 mg PO DAILY 01/19/23 [History] Hx Tetanus, Diphtheria Vaccination/Date Given: Yes Hx Influenza Vaccination/Date Given: No Hx Pneumococcal Vaccination/Date Given: No Travel Risk - International Travel Have you traveled outside of the country in past 3 weeks: No - Emerging Infectious Disease Are you exhibiting symptoms associated with any current EIDs: Yes Symptoms: Abdominal Pain - Review of Systems Constitutional: No Symptoms Eyes: No Symptoms Ears, Nose, & Throat: No Symptoms Respiratory: No Symptoms Cardiac: No Symptoms Abdominal/Gastrointestinal: No Symptoms Genitourinary Symptoms: No Symptoms Musculoskeletal: No Symptoms Skin: Rash (Generalized facial rash with mild swelling present.) Neurological: No Symptoms Psychological: No Symptoms Endocrine: No Symptoms Hematologic/Lymphatic: No Symptoms Immunological/Allergic: No Symptoms All Other Systems: Reviewed and Negative - Past Medical History Pertinent Past Medical History: No Neurological History: Migraines ENT History: No Pertinent History Cardiac History: No Pertinent History Respiratory History: No Pertinent History Endocrine Medical History: No Pertinent History Musculoskeletal History: Osteoarthritis GI Medical History: No Pertinent History History: No Pertinent History Psycho-Social History: No Pertinent History, Depression Female Reproductive Disorders: No Pertinent History Other Medical History: SCOLIOSIS, 36 DEGREE L CONVEXITY THORACIC CURVATURE, 24 DEGREE R LUMBAR CURVATURE. - Past Surgical History Past Surgical History: Yes Neuro Surgical History: No Pertinent History Cardiac: No Pertinent History Respiratory: No Pertinent History Genitourinary: No Pertinent History Musculoskeletal: No Pertinent History Female Surgical History: No Pertinent History Other Surgical History: TUBES IN EARS - Female History Hx Last Menstrual Period: 01/20/24 - Social History Smoking Status: Never smoker Exposure to second hand smoke: No Drug Use: none Patient Lives Alone: No - Social Determinants of Health Will the patient participate in the screening: Yes Do you worry about a steady place to live?: No In the past 12 months,have you had to go without utilities?: No Transportation Issues: No Has anyone in your support network made you feel unsafe?: No Have you or anyone in your house had to go without enough: No - Nursing Vital Signs Nursing Vital Signs: Initial Vital Signs Temperature 97.0 F 04/27/24 11:49 Pulse Rate 94 H 04/27/24 11:49 Respiratory Rate 20 04/27/24 11:49 Blood Pressure 127/81 04/27/24 11:49 O2 Sat by Pulse Oximetry 99 04/27/24 11:49 Pain Scale Pain Intensity 4 - Physical Exam General Appearance: no apparent distress, alert, anxiety Eye Exam: bilateral eye: normal inspection, PERRL, EOMI Ear Exam: bilateral ear: auricle normal Nasal Exam: normal inspection Throat Exam: normal, pharynx normal, moist mucus membranes, No excessive drooling Neck Exam: normal inspection, non-tender, supple, full range of motion Cardiovascular/Respiratory Exam: chest non-tender, normal breath sounds, regular rate/rhythm, heart sounds normal, no respiratory distress, No wheezing Abdominal Exam: non-tender Neurologic Exam: alert, oriented x 3, cooperative, drive man II-XII nml as tested, nml cerebellar function, nml station & gait, sensation nml Skin Exam: rash (General lysed mild facial rash with associated swelling that is mild.) SpO2 Interpretation: normal O2 Delivery: Room Air - Course Nursing assessment & vital signs reviewed: Yes Ordered Tests: Medication Summary Discontinued Medications Generic Name Dose Route Start Last Admin Trade Name Freq PRN Reason Stop Dose Admin Methylprednisolone Sodium 0 mg 04/27/24 12:25 Succinate 125 mg/ Sterile IM 04/27/24 12:26 Water 2 ml STAT ONE Famotidine 40 mg 04/27/24 12:25 Famotidine 20 Mg Tablet PO 04/27/24 12:26 STAT ONE - Progress Progress: improved, re-examined Progress Note: 04/27/24 12:32 My medical decision making and the assignment of low complexity is based on review of the patient's past medical history, review the patient's medication list, reviewed patient drug allergy list, history present illness and physical findings on examination. The workup in this patient does not require laboratory radiographic studies. Differential diagnosis includes but is not limited to allergic reaction, contact dermatitis, angioedema. Counseled pt/family regarding: diagnosis, need for follow-up Medical Desision Making - Independent Historian Additional History obtained from: Family - Risk of complications The pt has a mod risk of morbidity or mortality based on: Need for prescription drug management - Departure Departure Disposition: Home Clinical Impression: Contact dermatitis Condition: Stable Critical Care Time: No Referrals: SOLIS ROD NP [Primary Care Provider] - Follow up/PCP as directed Additional Instructions: Continue Benadryl 50 mg orally every 6-8 hours for the next 4 days. Take your steroids and Pepcid as prescribed. Return to the emergency department symptoms worsen. Call your primary care provider today, 04/27/2024, to make arrangements for follow-up appointment for further evaluation management. Prescriptions: Prednisone 10 mg [Deltasone 10 mg] 10 mg PO TID #12 tablet Famotidine 20 mg [Pepcid 20 MG] 20 mg PO DAILY #10 tablet
[2024-04-27 12:02] VITALS: TEMP 97
[2024-04-27] MEDS ORDERED: Sterile H2O 10 ml IJ ONE (13:09)
[2024-04-27] MEDS ORDERED: Pepcid 20 MG ONE (13:09)
[2024-04-27] MEDS ORDERED: solu-MEDROL ONE (13:09)
[2024-04-27 13:10] VITALS: BP 115/76; PULSE 91; RESP 19; O2SAT 99
[2024-04-27] MEDS: solu-MEDROL 125 MG, Sterile H2O 10 ml 2 ML IM ONE (13:10)
[2024-04-27] MEDS: Pepcid 20 MG PO ONE (13:10)
== END 2024-04-27 13:25 | disposition home or self-care (01) ==
LOC: ED 10:58
DX: L25.9 Unspecified contact dermatitis, unspecified cause (principal); Z79.52 Long term (current) use of systemic steroids; Z79.899 Other long term (current) drug therapy
CPT/HCPCS: 96372; 99283; J2919; A9270-GY